=== PATIENT | female | born 1980 ===

== ENCOUNTER 2017-03-06 19:25 | Emergency (ER) | payer OTHER ==
--- NOTE | 2017-03-06 21:44 | OBHP ---
Datetime: 03/06/2017 20:17 IP Adm Impression: , intrauterine IP Admit Plan: Observation/Evaluation Admit Comment, IP Provider: 36 y/o F, , IUP@ 36.1 GA, MARTHA 04/02/17. pt comes to [facility] from [facility] c/o Decreased FM. pt had an appt with Dr. Talbert this afternoon at the clinic and he decided to send pt to [facility] for further evaluation and observation. pt admits feeling less FM since morning, but she is feeling good FM now. pt denies any nausea, vomiting, visual changes or SOB, or chest pain. - No LOF/BV/CTX, +FM PNI: no issues so far with this PNC: Dr. Talbert PMH: none PSH: Cardic surgery in 1998 due to heart murmur POBH: , 1Xmiscarriage at 7weeks Allg:none Meds: PNV SH: no alcohol, smoking or drug use ROS: unremarkable VS: Afebrile and stable FHR: reassuring PE: unremarkable A/P: 36 y/o F, , IUP@ 36.1 GA, MARTHA 04/02/17. pt sent here by Dr. Talbert for evaluation of decreased FM - monitor VS - monitor NST/FHR - PTL precautions given - d/c home Case discussed with Dr. Carlos and pt was examined --- Sanjeev Melara, PGY-1 OBh addendum: Patient seen and examined by me with Dr. Melara agree with the above assessment and plan. kick counts discussed and reinforced with patient Have patient follow up with on a scheduled Pelvic Type - PN: Adequate Extremities - PN: Normal Abdomen - PN: Normal Back - PN: Normal Breast - PN: Normal Lungs - PN: Normal Heart - PN: Normal Thyroid - PN: Normal Neurologic - PN: Normal HEENT - PN: Normal General - PN: Normal FHR - Baseline A Provider: 160 EGA AdmitDate IP: 36.1 Vital Signs Provider: Reviewed; Within Normal Limits IP Chief Complaint: Decreased movement; Maternal discomfort NICHD Variability Prov Fetus A: Moderate 6-25bpm NICHD Accel Fetus A IP Provider: 15X15 FHR Category Provider Fetus A: Category I NICHD Decel Fetus A IP Provider: None Genitourinary Exam: Normal DTRs - PN: Normal
[2017-03-07 00:29] VITALS: BP 103/57; PULSE 63; RESP 18; TEMP 98.3
== END 2017-03-06 20:28 | disposition home or self-care (01) ==
LOC: H.EROB2 19:25
DX: O47.03 False labor before 37 completed weeks of gestation, third trimester (principal); Z3A.36 36 weeks gestation of pregnancy

== ENCOUNTER 2017-03-20 00:24 | Emergency (ER) | payer OTHER | END 2017-03-20 04:53 | disposition home or self-care (01) | LOC: H.EROB2 00:24 | DX: O47.1 False labor at or after 37 completed weeks of gestation (principal); Z3A.38 38 weeks gestation of pregnancy; O09.93 Supervision of high risk pregnancy, unspecified, third trimester ==

== ENCOUNTER 2017-03-20 08:23 | Inpatient (IN) | payer OTHER ==
--- NOTE | 2017-03-20 09:43 | OBADHP ---
Datetime: 03/20/2017 09:42 Admit Comment, IP Provider: 36 y/o F, , IUP@ 36.1 GA, MARTHA 04/02/17 by lmp _ 8wk us. pt comes t o [facility] with c/o leaking of fluid this morning @ 5:20am assoc with onset of painful ctxs. pt denies de creased fm, any nausea, vomiting, visual changes or SOB, or chest pain. PNI: no issues so far with this PNC: Dr. Talbert PMH: none PSH: Cardic surgery in 1998 due to heart murmur POBH: , 1Xmiscarriage at 7weeks Allg:none Meds: PNV SH: no alcohol, smoking or drug use ROS: unremarkable I: 38.1wks, Latent Phase Probable SROM- [place] by us AMA P: Admit for delivery pt d/w dr garzon Datetime: 03/20/2017 09:31 Pelvic Type - PN: Adequate Extremities - PN: Normal Abdomen - PN: Normal Lungs - PN: Normal Neurologic - PN: Normal HEENT - PN: Normal General - PN: Normal Presentation-Admit: Vertex FHR - Baseline A Provider: 140 Contraction Comments Provider: q6 Comments, ACOG Physical Exam: ob us 03/30: raffi 2.5; posterior plac; efw 3064g gbs neg; ri/A+/hepB, hiv, rpr neg IP Chief Complaint: Suspected ruptured membranes NICHD Variability Prov Fetus A: Moderate 6-25bpm NICHD Accel Fetus A IP Provider: 15X15 FHR Category Provider Fetus A: Category I Dilatation, Provider: 0 Effacement, Provider: 30 Station, Provider: -3 Genitourinary Exam: Normal DTRs - PN: Normal EGA AdmitDate IP: 38.1 IP Adm Impression: Term, intrauterine IP Admit Plan: Admit to unit Datetime: 03/20/2017 01:00 Back - PN: Normal Breast - PN: Not Done Heart - PN: Normal Thyroid - PN: Not Done Vital Signs Provider: Reviewed; Within Normal Limits NICHD Decel Fetus A IP Provider: None
--- NOTE | 2017-03-20 09:58 | OBADHP ---
Datetime: 03/20/2017 09:31 EGA AdmitDate IP: 38.1
[2017-03-20 10:33] VITALS: BMI 37.3
[2017-03-20 11:20] LABS: BASO % 0.4 % (0.0-2.0); EOS # 0.1 K/uL (0.0-0.7); EOS % 0.8 % (0.0-4.0); HEMATOCRIT 36.2 % (34.0-47.0); LYMPH # 1.7 K/uL (1.0-4.3); LYMPH % 14.1 % (20.0-40.0); MEAN CELL VOLUME 89.8 fl (81.0-99.0); MEAN CORPUSCULAR HEMOGLOBIN 29.8 pg (27.0-31.0); MEAN CORPUSCULAR HGB CONC 33.2 g/dL (33.0-37.0); MEAN PLATELET VOLUME 8.9 fl (7.2-11.7); MONO % 8.5 % (0.0-10.0); NEUT # 9.3 K/uL (1.8-7.0); NEUT % 76.2 % (50.0-75.0); NRBC % 0.1 % (0.0-0.0); RED CELL DISTRIBUTION WIDTH 14.5 % (11.5-14.5); WHITE BLOOD COUNT 12.2 K/uL (4.8-10.8)
--- NOTE | 2017-03-20 14:52 | OBPN ---
Datetime: 03/20/2017 14:43 IP Progress Impression: Normal progression of labor IP Procedures: Sterile Vag Exam IP Progress Plan: Continue present management Contraction Comments Provider: Q3 FHR - Baseline A Provider: 130 IP Progress Note Comment: 36 yo at 38+1 wks admitted w/ oligohydramnios FHT reassuring, GBS negative NICHD Accel Fetus A IP Provider: 15X15 FHR Category Provider Fetus A: Category I NICHD Variability Prov Fetus A: Moderate 6-25bpm Dilatation, Provider: 1 Effacement, Provider: 100 Station, Provider: -2 NICHD Decel Fetus A IP Provider: None Datetime: 03/20/2017 09:31 Presentation-Admit: Vertex Datetime: 03/20/2017 01:00 Vital Signs Provider: Reviewed; Within Normal Limits
[2017-03-20] MEDS: Lactated Ringer's 1,000 ML IV SCH (18:11)
[2017-03-21] MEDS: Lactated Ringer's 1,000 ML IV SCH ×3 (00:37→01:56)
[2017-03-21] MEDS ORDERED: Fentanyl/Bupivacaine HCl 250 ML EPI ONE (00:54)
[2017-03-21] MEDS ORDERED: Oxycodone/Acetaminophen 5/325 mg Tab PO PRN (09:32)
--- NOTE | 2017-03-21 10:11 | OBDS ---
DELIVERY PERSONNEL Delivery Doctor: Adolfo Talbert DO Revit Drafter: [id number] Anesthesiologist: Nataly Sanchez MD MATERNAL INFORMATION Delivery Anesthesia: Epidural Medications in Delivery: Pitocin Placenta Cultured: No Maternal Complications: None Provider Comments: Ob hospitalist on-call... Notified at 8am that she was fully dilated since 5am and hadn't started pushing. She pushed over intact perineum, live female aprgar 9,9. Laceation repaired as noted above. Placenta de liveed intact spontaneously. EBL 200cc LABOR SUMMARY EDC: 04/02/2017 00:00 No. Babies in Womb: 1 Attempted: No Labor Anesthesia: Epidural LABOR INFORMATION Reason for Induction: Other Reason for Induction Other: FILI 2.5 Onset of Labor: 03/21/2017 04:22 Complete Dilatation: 03/21/2017 04:40 Oxytocin: Induction Group B Beta Strep: Negative Antibiotics # of Doses: n/a Antibiotics Time of Last Dose: n/a Steroids Given: None Reason Steroids Not Administered: Not Applicable MEMBRANES Membranes Rupture Method: Spontaneous Rupture of Membranes: 03/20/2017 05:30 Length of Rupture (hrs): 27.13 Amniotic Fluid Color: Clear Amniotic Fluid Amount: Small Amniotic Fluid Odor: Normal STAGES OF LABOR Stage 1 hrs: 0 Stage 1 min: 18 Stage 2 hrs: 3 Stage 2 min: 58 Stage 3 hrs: 0 Stage 3 min: 12 Total Time in Labor hrs: 4 Total Time in Labor min: 28 VAGINAL DELIVERY Episiotomy: None Laceration Extension: Second Degree Laceration Type: Perineal Laceration Repair: Yes Laceration Repair Note: 1% Lidocaine infiltrated at perineum. 2nd degree laceration repeaired with 2.0 Vicryl Rapide. Also, a left vaginal laceration at 2 o'clock was repaired with 2.0 vircoyl Rapide x2 Initial Vag Sponge Count: 10 Final Vag Sponge Count: 10 Initial Vag Sharps Count: 4 Final Vag Sharps Count: 4 Sponge Count Correct: Yes Sharps Count Correct: Yes Count Comment: 10 lap pads 4 suture needles one syringe BABY A INFORMATION Infant Delivery Date/Time: 03/21/2017 08:38 Method of Delivery: Vaginal Born in Route : No : N/A Forceps: N/A Vacuum Extraction: N/A Shoulder Dystocia : No SHOULDER DYSTOCIA BABY A Delivery Date/Time: 03/21/2017 08:38 PRESENTATION/POSITION BABY A Presentation: Cephalic Cephalic Presentation: Vertex Breech Presentation: N/A PLACENTA INFORMATION BABY A Placenta Delivery Time : 03/21/2017 08:50 Placenta Method of Delivery: Spontaneous Placenta Status: Delivered SCORES BABY A Heart Rate 1 min: >100 bpm Resp Effort 1 min: Good Cry Reflex Irritability 1 min: Cough or Sneeze or Pulls Away Muscle Tone 1 min: Active Motion Color 1 min: Body [place], Extremities Blue Resuscitation Effort 1 min: Tactile Stimulation SCORE 1 MIN: 9 Heart Rate 5 min: >100 bpm Resp Effort 5 min: Good Cry Reflex Irritability 5 min: Cough or Sneeze or Pulls Away Muscle Tone 5 min: Active Motion Color 5 min: Body [place], Extremities Blue Resuscitation Effort 5 min: N/A SCORE 5 MIN: 9 INFANT INFORMATION BABY A Gestational Age at Delivery: 38.2 Gestational Status: Term Outcome : Liveborn Condition : Stable Infant Sex: Female IDENTIFICATION/MEDS BABY A ID Band Number: [id number] ID Band Location: Left Leg; Left Arm Vitamin K Given : Not Given Erythromycin Given: Not Given WEIGHT/LENGTH BABY A Infant Birthweight (gms): 3150 Weight (lb): 6 Infant Weight (oz): 15 CORD INFORMATION BABY A No. Cord Vessels: 3 Nuchal Cord : N/A Nuchal Cord Other: n/a True Knot: n/a Cord pH Baby Arterial: n/a Infant Cord pH Baby Venous: n/a Cord Blood Taken: Yes Banking/Donate Info: n/a Infant Suction: Mouth; Nose ASSESSMENT BABY A Infant Complications: None Physical Findings at Delivery: Within Normal Limits Respirations: Appears Normal Nutrition Professor/ALS Called : No Infant Care By: Marilynn Transferred To: Remains with Mother
[2017-03-21] MEDS: Benzocaine/Menthol SPRAY TOP PRN (16:59)
[2017-03-22 06:36] LABS: HEMATOCRIT 27.6 % (34.0-47.0); MEAN CELL VOLUME 90.1 fl (81.0-99.0); MEAN CORPUSCULAR HGB CONC 33.3 g/dL (33.0-37.0); RED CELL DISTRIBUTION WIDTH 14.8 % (11.5-14.5); WHITE BLOOD COUNT 16.3 K/uL (4.8-10.8)
[2017-03-22] MEDS: Multivitamin With Minerals Tab PO SCH (09:03)
--- NOTE | 2017-03-22 11:43 | OBPPN ---
Datetime: 03/22/2017 11:24 PP Pain Prov: Within normal limits PP Nausea Prov: Denies PP Flatus Prov: Yes PP BM Prov: Yes PP Breasts Prov: Normal PP Heart Prov: Normal PP Lungs Prov: Normal PP Abdomen/Uterus Prov: Normal PP Lochia Prov: Normal PP Vulva/Perineum Prov: Normal PP CVA Tenderness Prov: Normal PP Extremities Prov: Normal PP Impression Prov: Normal progression PP Plan Prov: Continue present management PP Impression Other Prov: Anemia PP Progress Note Prov: She feels fine. Ambulatin without difficulty H/H 04/02 A; S/P day 1 Anemia - asymptomatic PLAN: cont care; anticipate discharge in Am Vital Signs Provider PP: Reviewed; Within Normal Limits
[2017-03-22] MEDS ORDERED: Influenza Vaccine 18yr & older 0.5 ML/45 MCG SYR IM ONE (14:49)
--- NOTE | 2017-03-23 07:16 | OBDCSUM ---
Datetime: 03/23/2017 07:13 Discharged to, Provider: Home Follow up at, Provider: [facility] Disch Instr Activity: Normal activity Disch Instr Diet: Regular Discharge Instructions, Provider: Routine instructions given Discharge Diagnosis, Provider: Term Delivered Follow up in weeks, Provider: 6w Disch Referrals: None Contraception discussed, Prov: Yes Disch Activity Restrictions: No sexual activity; Nothing in vagina - [place], tampons, douche
--- NOTE | 2017-03-23 07:16 | OBPPN ---
Datetime: 03/23/2017 07:12 PP Pain Prov: Within normal limits PP Nausea Prov: Denies PP Flatus Prov: Yes PP BM Prov: Yes PP Breasts Prov: Normal PP Heart Prov: Normal PP Lungs Prov: Normal PP Abdomen/Uterus Prov: Normal PP Lochia Prov: Normal PP Vulva/Perineum Prov: Normal PP CVA Tenderness Prov: Normal PP Extremities Prov: Normal PP Progress Prov: Normal PP Impression Prov: Normal progression PP Plan Prov: Discharge PP Progress Note Prov: day 2 dischareg home follow up [facility] 6w Vital Signs Provider PP: Reviewed
[2017-03-23] MEDS: Multivitamin With Minerals Tab PO SCH (09:02)
[2017-03-23] MEDS: Benzocaine/Menthol SPRAY TOP PRN (10:55)
[2017-03-23 17:57] VITALS: BP 105/60; PULSE 65; RESP 18; TEMP 98.1; O2SAT 100
== END 2017-03-23 12:15 | disposition home or self-care (01) | DRG 775 ==
LOC: H.EROB2 08:23 → H.EROB 08:42 → H.EROB2 10:32 → H.L&D 10:33 → H.OB/GYN 03-21 12:30
PROVIDERS: ADMIT Obstetrics & Gynecology; ATTEND Obstetrics & Gynecology
PROC: 0KQM0ZZ Repair Perineum Muscle, Open Approach (ICD-10-PCS; principal; 2017-03-20)
PROC: 10E0XZZ Delivery of Products of Conception, External Approach (ICD-10-PCS; 2017-03-20)
PROC: 4A1HXCZ Monitoring of Products of Conception, Cardiac Rate, External Approach (ICD-10-PCS; 2017-03-20)
DX: O41.03X0 Oligohydramnios, third trimester, not applicable or unspecified (principal); D64.9 Anemia, unspecified; Z37.0 Single live birth; O99.02 Anemia complicating childbirth; O70.1 Second degree perineal laceration during delivery; Z3A.38 38 weeks gestation of pregnancy